=== PATIENT | female | born 1985 | race Two or more races ===

== ENCOUNTER 2017-09-27 01:55 | Emergency (ER) | payer OTHER ==
[~2017-09-27] VITALS: Ht 167.6 cm; Wt 62.6 kg
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
--- NOTE | 2017-09-27 02:06 | NUR ---
[facility] BEDSIDE WITH PT TAKING REPORT.
--- NOTE | 2017-09-27 02:10 | NUR ---
BEDSIDE FOR EVAL.
[2017-09-27] MEDS ORDERED: HYDROMORPHONE INJ 0.5 MG/0.5 ML SYRINGE ONE (02:24)
[2017-09-27] MEDS ORDERED: ONDANSETRON HCL/PF 4 MG/2 ML VIAL ONE (02:24)
[2017-09-27] MEDS ORDERED: HYDROMORPHONE INJ 2 MG/ML DISP.SYRIN IV ONE (02:30)
[2017-09-27] MEDS ORDERED: MORPHINE SULFATE INJ 2 MG/ML DISP.SYRIN IV ONE ×3 (02:30→05:30)
[2017-09-27] MEDS ORDERED: ONDANSETRON HCL/PF 4 MG/2 ML VIAL IVP ONE (02:30)
[2017-09-27] MEDS ORDERED: MORPHINE SULFATE INJ 4 MG/ML DISP.SYRIN ONE ×3 (02:46→05:06)
[2017-09-27 02:56] LABS: EOSINOPHILS % (AUTO) 0.2 % (0.0-6.0); HEMATOCRIT 38 % (33-45); LYMPHOCYTES # (AUTO) 1.4 /CMM (0.8-4.8); LYMPHOCYTES % (AUTO) 12.6 % (20.0-44.0); MEAN CORPUSCULAR HEMOGLOBIN 30 PG (26.0-33.0); MEAN CORPUSCULAR HGB CONC 34 g/dl (31.0-36.0); MEAN CORPUSCULAR VOLUME 87 fL (82-100); MONOCYTES # (AUTO) 0.6 /CMM (0.1-1.30); MONOCYTES % (AUTO) 5.2 % (2.0-12.0); PLATELET COUNT (AUTO) 206 /CMM (150-450); RDW COEFFICIENT OF VARIATION 13.1 (11.5-15.0); RED BLOOD CELL COUNT(AUTO) 4.37 MIL/uL (4.0-5.2)
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
--- NOTE | 2017-09-27 03:01 | NUR ---
URINE CUP GIVEN TO PT. PT STATES SHE IS UNABLE TO URINATE AT THIS TIME.
[2017-09-27 03:31] LABS: CREATININE 0.8 mg/dL (0.6-1.3); POTASSIUM 3.3 mmol/L (3.5-5.1)
[2017-09-27 03:35] LABS: INR 1.02 (0.87-1.13)
[2017-09-27 03:37] LABS: ALBUMIN 3.7 g/dL (3.4-5.0); BILIRUBIN,DIRECT 0.1 mg/dL (0.0-0.2); BILIRUBIN,TOTAL 0.4 mg/dL (0.2-1.0); TOTAL PROTEIN, SERUM 8.1 g/dL (6.4-8.2)
[2017-09-27] MEDS ORDERED: IOHEXOL-300 100 ML VIAL IV ONE (03:43)
[2017-09-27] MEDS ORDERED: CT SWABBABLE VALVE TRANS SET 1 EA INFUS.SET MC ONE (03:43)
[2017-09-27] MEDS ORDERED: IV NS 0.9% 250 ML IV ONE ×2 (03:43→03:45)
--- NOTE | 2017-09-27 03:45 | NUR ---
Patient is resting comfortably in bed with eyes open. Boyfriend bedside with pt. Call light within reach of pt. bed in lowest setting. side rails raised. pt placed on nc 2L. VSS. will continue to monitor pt.
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
[2017-09-27 05:33] VITALS: BP 132/77
== END 2017-09-27 05:34 | disposition home or self-care (01) ==
LOC: ER 01:56
DX: S09.8XXA Other specified injuries of head, initial encounter (principal); S00.83XA Contusion of other part of head, initial encounter; S60.221A Contusion of right hand, initial encounter; S50.12XA Contusion of left forearm, initial encounter; N19 Unspecified kidney failure; Z86.718 Personal history of other venous thrombosis and embolism; Y04.8XXA Assault by other bodily force, initial encounter; Y93.89 Activity, other specified; Y92.89 Other specified places as the place of occurrence of the external cause; Y99.8 Other external cause status
CPT/HCPCS: 36415; 70450-TC; 71045-TC; 73090-TC; 80048-TC; 80076-TC; 84703-TC; 85025-TC; 85730-TC; A4606; J2270; J2405; J7050; Q9967; Z7610